=== PATIENT | female | born 1995 | race African-American/Black ===

== ENCOUNTER 2024-12-25 07:26 | Emergency (ER) | payer OTHER ==
[2024-12-25 07:38] VITALS: BP 126/82; PULSE 88; RESP 18; TEMP 99.1; BMI 28.5
[2024-12-25 08:40] LABS: THROAT:GRP A STREP NOT DETECTED (NOTDETECTED)
[2024-12-25 12:09] LABS: HCV DIAGNOSTIC IN-HOUSE W/RFLX NON-REACTIVE (NONREACTIVE)
[2024-12-25 12:11] LABS: HIV INTERPRETATION NEGATIVE (NEGATIVE)
== END 2024-12-25 09:03 | disposition home or self-care (01) ==
LOC: JER 07:26 → JERFT 07:26
DX: J10.1 Influenza due to other identified influenza virus with other respiratory manifestations (principal); R22.0 Localized swelling, mass and lump, head
CPT/HCPCS: 0241U-QW; 36415; 86803; 87389; 87651; 99283-25

== ENCOUNTER 2025-02-13 07:09 | Emergency (ER) | payer OTHER ==
[2025-02-13 07:21] VITALS: BP 127/87; PULSE 72; RESP 18; TEMP 98.7; BMI 30.5
[2025-02-13 11:42] LABS: HCV DIAGNOSTIC IN-HOUSE W/RFLX NON-REACTIVE (NONREACTIVE)
[2025-02-13 11:43] LABS: HIV INTERPRETATION NEGATIVE (NEGATIVE)
== END 2025-02-13 08:00 | disposition home or self-care (01) ==
LOC: JER 07:09 → JERFT 07:09
DX: H00.014 Hordeolum externum left upper eyelid (principal)
CPT/HCPCS: 36415; 86803; 87389; 99283-25